=== PATIENT | male | born 1955 | race Native Hawaiian/Other Pacific Islander ===

== ENCOUNTER 2018-11-02 18:19 | Emergency (ER) | payer MEDICARE, OTHER ==
[~2018-11-02] VITALS: Ht 180.3 cm; Wt 95.3 kg
[2018-11-02 19:02] VITALS: BP 129/77
[2018-11-02] MEDS ORDERED: EPINEPHrine HCL 1 MG/1 ML AMP SC ONE (19:30)
[2018-11-02] MEDS ORDERED: methylPREDNISolone SOD SUCC 125 MG/2 ML VL IM ONE (19:30)
[2018-11-02] MEDS ORDERED: FAMOTIDINE 20 MG TAB PO ONE (19:30)
[2018-11-02] MEDS ORDERED: diphenhdrAMINE HCL 50 MG/1 ML VL IM ONE (19:30)
== END 2018-11-02 20:00 | disposition home or self-care (01) ==
LOC: ER 18:21
DX: L25.9 Unspecified contact dermatitis, unspecified cause (principal); T78.40XA Allergy, unspecified, initial encounter; E11.9 Type 2 diabetes mellitus without complications; I10 Essential (primary) hypertension
CPT/HCPCS: 82962; 96372; 99283; J0171; J1200; J2930